=== PATIENT | male | born 1970 | race African-American/Black ===

== ENCOUNTER 2020-04-21 18:19 | Emergency (ER) | payer OTHER ==
[~2020-04-21] VITALS: Ht 170.2 cm; Wt 77.1 kg
[2020-04-21 23:45] VITALS: BP 156/92; TEMP 98.1
== END 2020-04-21 21:45 | disposition home or self-care (01) ==
LOC: ED 18:19
DX: J20.9 Acute bronchitis, unspecified (principal); U07.1 COVID-19
CPT/HCPCS: 36415; 87502; 87635; 87651; 99283; U0003

== ENCOUNTER 2021-01-25 09:04 | Outpatient (CLI) | payer BC ==
[2021-01-25 09:41] LABS: PLATELET COUNT 209 K/uL (142-355)
[2021-01-25 10:17] LABS: POTASSIUM 4.2 mmol/L (3.6-5.2)
== END 2021-01-25 23:00 | disposition home or self-care (01) ==
LOC: LABW 09:04
PROVIDERS: ATTEND Internal Medicine
DX: I10 Essential (primary) hypertension (principal); Z12.5 Encounter for screening for malignant neoplasm of prostate
CPT/HCPCS: 36415; 80053; 80061; 81000; 84153; 84439; 84443; 85027